=== PATIENT | male | born 1965 | race Caucasian/White ===

== ENCOUNTER → 2018-09-25 | Outpatient (REF) | payer OTHER ==
[~2018-09-25] MED LIST: BETA0.12 TOP; CICL8SOL3 TOP; LISI10TA4 PO; PERC5TAB12 PO; XARE10TA PO
[2018-09-25 14:31] LABS: BASO % 0.5 % (0.0-1.0); EOS % 0.5 % (0.0-3.0); HEMATOCRIT 47.4 % (42.0-52.0); LYMPH # 1.7 10^3/uL (1.5-4.5); MEAN CORPUSCULAR HEMOGLOBIN 30.3 pg (27.0-33.0); MEAN CORPUSCULAR HGB CONC 33.8 g/dl (32.0-36.5); MEAN CORPUSCULAR VOLUME 89.8 fl (80.0-96.0); MONO # 0.4 10^3/uL (0.0-0.8); MONO % 6.5 % (0.0-5.0); NEUTROPHILS % 65.2 % (36.0-66.0); PLATELET COUNT, AUTOMATED 223 10^3/uL (150-450); RED BLOOD COUNT 5.28 10^6/uL (4.30-6.10); WHITE BLOOD COUNT 6.1 10^3/uL (4.0-10.0)
[2018-09-25 15:30] LABS: ERYTHROCYTE SEDIMENTATION RATE 3 mm/hr (0-20)
== END ==
LOC: M LABDRAW1 09:49
PROVIDERS: ATTEND Orthopaedic Surgery
DX: S72.091D Other fracture of head and neck of right femur, subsequent encounter for closed fracture with routine healing (principal); W18.30XD Fall on same level, unspecified, subsequent encounter; Y92.009 Unspecified place in unspecified non-institutional (private) residence as the place of occurrence of the external cause

== ENCOUNTER 2018-10-21 06:00 | Day surgery (SDC) | payer OTHER ==
[~2018-10-21] VITALS: Ht 177.8 cm; Wt 79.8 kg
[~2018-10-21 06:00] MED LIST changes: +LIDOCAINE 1% MDV 20ML VIAL SQ PRN
[2018-10-21] MEDS ORDERED: BAYE325T12 PO (06:36)
[2018-10-21] MEDS ORDERED: BUPIVACAINE/EPIN 0.25% 30 ML VIAL As Ordered ONE (06:44)
[2018-10-21] MEDS ORDERED: ceFAZolin 1GM INJ (J0690 PER 500MG) As Ordered ONE (06:45)
[2018-10-21] MEDS ORDERED: LR 1,000 ML IV ONE (07:00)
[2018-10-21] MEDS ORDERED: PROPOFOL 200 MG/20 ML VIAL As Ordered ONE (07:10)
[2018-10-21] MEDS ORDERED: MIDAZOLAM INJ 2 MG/2 ML VIAL (J2250) As Ordered ONE (07:10)
[2018-10-21] MEDS ORDERED: LIDOCAINE 2% INJ 100 MG/5 ML SDV (FOR ANES.) As Ordered ONE (07:10)
[2018-10-21] MEDS ORDERED: fentaNYL 100 MCG/2 ML INJECTION (J3010) As Ordered ONE (07:10)
[2018-10-21] MEDS ORDERED: dexameTHASONE 4 MG/ML 1ML VIAL (J1100) As Ordered ONE (07:11)
[2018-10-21] MEDS ORDERED: ONDANSETRON 4MG/2ML VIAL (J2405) As Ordered ONE (07:11)
[2018-10-21] MEDS ORDERED: ROCURONIUM BROMIDE 50 MG/5 ML VIAL As Ordered ONE (07:11)
[2018-10-21] MEDS ORDERED: BUPIVACAINE HCL 0.25% 10 ML VIAL As Ordered ONE (07:57)
[2018-10-21] MEDS ORDERED: BUPIVACAINE/DEXTROSE 0.75% 2 ML AMP As Ordered ONE (08:03)
[2018-10-21] MEDS ORDERED: ACETAMINOPHEN 1000MG 100ML IV BTL (OFIRMEV) (J0131 PER 10MG) As Ordered ONE (08:35)
[2018-10-21] MEDS ORDERED: LISINOPRIL 10 MG TAB PO SCH (09:00)
[2018-10-21] MEDS ORDERED: ASPIRIN 325 MG TAB PO SCH (09:00)
[2018-10-21] MEDS ORDERED: fentaNYL 100 MCG/2 ML INJECTION (J3010) IV PRN (09:15)
[2018-10-21] MEDS ORDERED: LR 1,000 ML IV SCH ×2 (09:15→10:16)
[2018-10-21] MEDS ORDERED: ONDANSETRON 4MG/2ML VIAL (J2405) IV PRN ×2 (09:15→10:16)
--- NOTE | 2018-10-21 09:27 | RO ---
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 PROCEDURE: Removal of 7.3 cannulated screw and DHS/AO screw and side plate and screws from right hip with cultures. SURGEON: Dr. Osmin Limon [employer]IANCE MANAGER: Elise Isaacs ANESTHESIA: Spinal. ESTIMATED BLOOD LOSS: 50. COMPLICATIONS: None. INDICATIONS: This is a 53-year-old gentleman who about 5 months ago was treated by Dr. Chiang for an open reduction internal fixation. Unfortunately, the patient has gone on to have continued pain with evidence of motion of the hardware in the hip and CT evidence of likely nonunion. His inflammatory markers have been negative so there has been no sign of any overt infection. I recommended hardware removal with a holiday in between to rule out infection and to allow the soft tissues to stabilize and the bone to stabilize some where the hardware was removed followed by hip replacement. He wished to go ahead with this. This is something he has been thinking about for a long time and understood the nature of today's procedure and the risks of bleeding, infection, damage to nerves, vessels, persistent pain, malunion, nonunion, loss of reduction, among others. He understood there would be a several week holiday in between the hardware removal and the hip replacement and it would be longer if there was any infection. DESCRIPTION OF PROCEDURE: The patient was taken to the operating room and placed in supine position after spinal anesthesia was induced. A bump was placed under the right hip. We prepped and draped the right hip in the usual fashion. A time out was performed. I created a longitudinal incision over his previous incision on the lateral aspect of the hip. Sharp dissection was carried down through subcutaneous tissue until the fascia was encountered. I elevated planes on the anterior and posterior aspect of the fascia, controlled hemostasis with the cautery, incised the fascia and then lifted the vastus lateralis anteriorly and dissected the posterior aspect. I then identified the hardware, exposed it with the cautery and removed the 7.3 cannulated screw manually. I then removed the three screws on the plate and pulled the plate off. I did not have to remove any compression screw in the hip screw. The hip screw was then removed with the AO screw charter and tour bus driver set. I did obtain cultures over the plate and cultures in the void where the hip screw had been. I irrigated copiously at this point. I used a jalloh and curette to clean off the lateral aspect of the femur with the pseudomembrane being removed. There was no evidence of purulence or sign of infection. It did not appear to be overly inflamed. Final irrigation was performed deep. I then repaired the fascia shea with #1 Vicryl, injected some 0.25% Marcaine deep in the wound, irrigated, closed the subcutaneous with #2-0 Vicryl and the skin with akash. Sterile dressing was applied, but I had also injected some more Marcaine in the subcutaneous tissues. He was taken to recovery room in stable condition. There were no known complications. The plan will be routine postop. I am going allow him to partially weight bear within comfort range. He may stay overnight, but this all depends on his level of comfort. If he is ambulatory and wishes to go, I think that will be fine. I talked to his in detail about this as well.
[2018-10-21] MEDS ORDERED: PERCOCET 5MG/325MG TAB PO PRN (09:30)
[2018-10-21] MEDS ORDERED: MORPHINE 4 MG/ML 1ML VIAL/SYRINGE (J2270) IV PRN ×2 (10:16)
[2018-10-21] MEDS ORDERED: FLEET ENEMA PR PRN (10:16)
[2018-10-21] MEDS ORDERED: ACETAMINOPHEN TAB 650MG DOSE (2X325MG) PO PRN (10:16)
[2018-10-21 11:58] VITALS: BP 131/79
[2018-10-21 12:25] VITALS: BP 130/80
[2018-10-21 12:39] VITALS: BP 139/76
[2018-10-21 13:32] VITALS: BP 142/95
--- NOTE | 2018-10-21 14:07 | REP ---
PORTABLE RIGHT HIP: Two views. HISTORY: Postop. Comparison right hip radiographs are from May 28, 2018. FINDINGS: The previously placed metallic screw plate fixation device and associated femoral neck pins have been removed. Pin tracks are seen. There is periarticular soft-tissue swelling, postoperative soft tissue emphysema, and lateral skin akash are noted. A left femoral neck fracture was seen. There is shortening of the femoral neck in the region of the fracture question subsidence. IMPRESSION: Status post hardware removal. Electronically Signed by Oj Adorno MD 10/21/2018 02:20 P
[2018-10-21 14:40] VITALS: BP 136/90
[2018-10-21 15:33] VITALS: BP 135/83
== END 2018-10-21 16:10 | disposition home or self-care (01) ==
LOC: M SDC 06:00 → M MS5PR 11:55 → M SDC 16:10
PROVIDERS: ATTEND Orthopaedic Surgery
DX: T84.84XA Pain due to internal orthopedic prosthetic devices, implants and grafts, initial encounter (principal); S72.091 Other fracture of head and neck of right femur; I10 Essential (primary) hypertension; Z79.899 Other long term (current) drug therapy; N40.0 Benign prostatic hyperplasia without lower urinary tract symptoms; Y79.2 Prosthetic and other implants, materials and accessory orthopedic devices associated with adverse incidents; Y84.8 Other medical procedures as the cause of abnormal reaction of the patient, or of later complication, without mention of misadventure at the time of the procedure
CPT/HCPCS: 20680; 73502; 87070; 87075; 87205; 97161; 97530; J0131; J0690; J1100; J2250; J2405; J3010

== ENCOUNTER 2019-10-01 22:37 | Emergency (ER) | payer OTHER ==
[~2019-10-01] VITALS: Ht 180.3 cm; Wt 81.9 kg
[~2019-10-01 22:37] MED LIST changes: +BAYE325T12 PO; -LIDOCAINE 1% MDV 20ML VIAL SQ PRN
[2019-10-01 23:48] LABS: BILIRUBIN, URINE MANUAL NEGATIVE (NEGATIVE); GLUCOSE, URINE (UA) MANUAL NEGATIVE (NEGATIVE); KETONE, URINE MANUAL NEGATIVE (NEGATIVE); UROBILINOGEN, URINE MANUAL NORMAL (NORMAL)
[2019-10-01 23:59] LABS: RBC, URINE 15-20 /hpf (0-3)
[2019-10-02] LABS: BACTERIA, URINE NONE SEEN; HYALINE CAST, URINE NONE SEEN /lpf (0-1); SQUAMOUS EPITHELIAL CELL URINE NONE SEEN /hpf (SMALL AMT)
[2019-10-02 00:01] LABS: AMORPHOUS SEDIMENT, URINE LARGE AMOUNT (NEGATIVE); MUCUS, URINE SMALL AMOUNT (NEGATIVE)
[2019-10-02 00:09] VITALS: BP 128/68
== END 2019-10-02 00:10 | disposition home or self-care (01) ==
LOC: M ED 22:37
DX: N20.1 Calculus of ureter (principal); I10 Essential (primary) hypertension; Z79.899 Other long term (current) drug therapy

== ENCOUNTER → 2020-04-22 | Outpatient (REF) | payer OTHER ==
[~2020-04-22] MED LIST changes: +LISI10TA22 PO; -LISI10TA4 PO
[2020-04-22 13:08] LABS: APPEARANCE, URINE CLEAR (CLEAR); BACTERIA, URINE AUTO NEGATIVE (NEGATIVE); BILIRUBIN, URINE AUTO NEGATIVE (NEGATIVE); BLOOD, URINE BLOOD NEGATIVE (NEGATIVE); COLOR, URINE YELLOW (YELLOW); GLUCOSE, URINE (UA) AUTO NEGATIVE (NEGATIVE); KETONE, URINE AUTO NEGATIVE (NEGATIVE); LEUKOCYTE ESTERASE, URINE AUTO NEGATIVE (NEGATIVE); NITRITE, URINE AUTO NEGATIVE (NEGATIVE); PROTEIN, URINE AUTO NEGATIVE (NEGATIVE); RBC, URINE AUTO 1 /HPF (0-3); SPECIFIC GRAVITY URINE AUTO 1.009 (1.002-1.035); SQUAMOUS EPITHELIAL CELL UR AU 0 /HPF (0-6); UROBILINOGEN, URINE AUTO 0.2 mg/dL (0.0-2.0); WBC, URINE AUTO 0 /HPF (0-3)
== END ==
LOC: M SMT 12:51
PROVIDERS: ATTEND Urology
DX: R31.0 Gross hematuria (principal)

== ENCOUNTER → 2020-05-03 | Outpatient (CLI) | payer OTHER ==
--- NOTE | 2020-05-03 16:52 | REP ---
INDICATION: GROSS HEMATURIA. COMPARISON: None. TECHNIQUE: Urinary tract sonography. FINDINGS: Scanning at the level of the urinary bladder shows no abnormality. Renal cortical echogenicity pattern is normal bilaterally and contours are smooth. There is no evidence of hydronephrosis, cyst, mass, or calculus in either kidney. The right kidney measures 12.1 x 4.7 x 5.8 cm. Left renal dimensions are 11.6 x 4.7 x 6.2 cm. IMPRESSION: Normal urinary tract sonography. <Electronically signed by Gucci Adorno > 05/03/20 [id number]
== END ==
LOC: M RAD 14:43
PROVIDERS: ATTEND Urology
DX: R31.0 Gross hematuria (principal)

== ENCOUNTER → 2022-01-29 | Outpatient (CLI) | payer OTHER ==
[~2022-01-29] MED LIST changes: +CICL6.6S TOP; -CICL8SOL3 TOP; +VITA200048 PO
== END ==
LOC: M LABSMTC 09:54
PROVIDERS: ATTEND Anesthesiology
DX: Z01.818 Encounter for other preprocedural examination (principal); Z11.52 Encounter for screening for COVID-19

== ENCOUNTER → 2022-02-07 | Outpatient (CLI) | payer OTHER | LOC: M LABSMTC 10:29 | PROVIDERS: ATTEND Anesthesiology | DX: Z01.812 Encounter for preprocedural laboratory examination (principal) ==

== ENCOUNTER 2022-02-10 09:36 | Day surgery (SDC) | payer OTHER ==
[~2022-02-10] VITALS: Ht 177.8 cm; Wt 80.9 kg
[~2022-02-10 09:36] MED LIST changes: +NS 1,000 ML IV ONE; +propofoL 200 MG/20 ML VIAL As Ordered ONE
[2022-02-10 11:04] VITALS: BP 116/79
== END 2022-02-10 11:19 | disposition home or self-care (01) ==
LOC: M OPP 09:36
PROVIDERS: ATTEND Surgery
DX: R19.4 Change in bowel habit (principal); K57.30 Diverticulosis of large intestine without perforation or abscess without bleeding; K64.1 Second degree hemorrhoids; I10 Essential (primary) hypertension; F41.9 Anxiety disorder, unspecified; N40.0 Benign prostatic hyperplasia without lower urinary tract symptoms; Z96.641 Presence of right artificial hip joint; Z79.899 Other long term (current) drug therapy

== ENCOUNTER → 2022-04-07 | Outpatient (REF) | payer OTHER ==
[~2022-04-07] MED LIST changes: -NS 1,000 ML IV ONE; -propofoL 200 MG/20 ML VIAL As Ordered ONE
== END ==
LOC: M LAB REF 18:45
PROVIDERS: ATTEND Physician Assistant
DX: J02.9 Acute pharyngitis, unspecified (principal)

== ENCOUNTER → 2023-04-27 | Outpatient (CLI) | payer OTHER ==
[2023-04-27 12:51] LABS: APPEARANCE, URINE HAZY (CLEAR); BACTERIA, URINE AUTO NEGATIVE (NEGATIVE); BILIRUBIN, URINE AUTO NEGATIVE (NEGATIVE); BLOOD, URINE BLOOD NEGATIVE (NEGATIVE); COLOR, URINE AMBER (YELLOW); GLUCOSE, URINE (UA) AUTO NEGATIVE (NEGATIVE); KETONE, URINE AUTO TRACE mg/dL (NEGATIVE); LEUKOCYTE ESTERASE, URINE AUTO NEGATIVE (NEGATIVE); MUCUS, URINE SMALL (NEGATIVE); NITRITE, URINE AUTO NEGATIVE (NEGATIVE); PROTEIN, URINE AUTO 1+ mg/dL (NEGATIVE); RBC, URINE AUTO 1 /HPF (0-3); SPECIFIC GRAVITY URINE AUTO 1.031 (1.002-1.035); SQUAMOUS EPITHELIAL CELL UR AU 0 /HPF (0-6); WBC, URINE AUTO 4 /HPF (0-3)
[2023-04-27 13:28] LABS: HEMATOCRIT 47.5 % (42.0-52.0); HEMOGLOBIN 16.4 g/dl (13.5-17.5); MEAN CORPUSCULAR HEMOGLOBIN 31.2 pg (27.0-33.0); MEAN CORPUSCULAR HGB CONC 34.5 g/dl (32.0-36.5); MEAN CORPUSCULAR VOLUME 90.3 fl (80.0-96.0); PLATELET COUNT, AUTOMATED 210 10^3/uL (150-450); RED BLOOD COUNT 5.26 10^6/uL (4.30-6.10); WHITE BLOOD COUNT 7.1 10^3/uL (4.0-10.0)
[2023-04-27 13:57] LABS: ALBUMIN 4.4 G/DL (3.2-5.2); ALKALINE PHOSPHATASE 65 U/L (46-116); ALT/SGPT 33 U/L (7.0-40); AST/SGOT 28 U/L (<34); BILIRUBIN,TOTAL 0.8 MG/DL (0.3-1.2); BLOOD UREA NITROGEN 25 MG/DL (9-23); CALCIUM LEVEL 9.2 MG/DL (8.5-10.1); CARBON DIOXIDE LEVEL 31 MMOL/L (20-31); CHLORIDE LEVEL 104 MMOL/L (98-107); CHOLESTEROL LEVEL 235 MG/DL (<200); CHOLESTEROL RISK RATIO 4.89 (<5); CREATININE FOR GFR 0.81 MG/DL (0.70-1.30); GLOMERULAR FILTRATION RATE > 60.0 (>56); GLUCOSE, FASTING 101 MG/DL (60-100); POTASSIUM SERUM 4.3 MMOL/L (3.5-5.1); PROSTATIC SPECIFIC AG MONITOR 2.02 NG/ML (< 4.00); SODIUM LEVEL 138 MMOL/L (136-145); TOTAL PROTEIN 6.8 G/DL (5.7-8.2); TRIGLYCERIDES LEVEL 155 MG/DL (<150)
[2023-04-27 14:00] LABS: THYROID STIMULATING HORMONE 1.536 uIU/ML (0.55-4.78)
== END ==
LOC: M WUC 10:23
PROVIDERS: ATTEND Physician Assistant
DX: I10 Essential (primary) hypertension (principal); E78.5 Hyperlipidemia, unspecified; R35.1 Nocturia; J32.9 Chronic sinusitis, unspecified

== ENCOUNTER 2023-12-26 20:39 | Emergency (ER) | payer OTHER ==
[~2023-12-26] VITALS: Ht 180.3 cm; Wt 89.4 kg
[2023-12-26] MEDS ORDERED: AMMO12LO (20:46)
[2023-12-26] MEDS: diphenhydrAMINE 25MG CAP PO ONE (21:37)
[2023-12-26 21:39] VITALS: BP 136/91; TEMP 97.6; O2SAT 96
== END 2023-12-26 22:10 | disposition left against medical advice (07) ==
LOC: M ED 20:39
DX: Z53.21 Procedure and treatment not carried out due to patient leaving prior to being seen by health care provider (principal)

== ENCOUNTER → 2024-02-01 | Outpatient (CLI) | payer OTHER ==
[~2024-02-01] MED LIST changes: +AMMO12LO; -BAYE325T12 PO; +BAYE325T2 PO
== END ==
LOC: M SLEEP 20:00
PROVIDERS: ATTEND Internal Medicine Pulmonary Disease
DX: R06.83 Snoring (principal)

== ENCOUNTER → 2025-01-21 | Outpatient (CLI) | payer OTHER | LOC: M WUC 11:26 | PROVIDERS: ATTEND Physician Assistant | DX: M79.641 Pain in right hand (principal) ==